=== PATIENT | female | born 1950 | race Caucasian/White ===

== ENCOUNTER 2017-04-20 12:45 | Inpatient (IN) | payer MEDICARE, OTHER ==
[~2017-04-20] VITALS: Ht 165.1 cm; Wt 79.2 kg
--- NOTE | ~2017-04-20 | CON ---
PATIENT'S NAME: SILVIA METZGER [facility] AGE: 67 Y [address] ROOM: [place] [address] LOCATION: [facility] ADMIT DATE: 04/20/2017 Consultation DISCHARGE DATE: FAMILY PHYSICIAN: PHYSICIAN, UNKNOWN ATTENDING PHYSICIAN: Sharan LAYNE DATE OF CONSULTATION: 04/21/2017 TIME: 11:35 p.m. CHIEF COMPLAINT: Stroke. HISTORY OF PRESENT ILLNESS: This is a , 67-year-old female with a past medical history of atrial fibrillation. She is on Coumadin for this. She has also had a history of a prior stroke and some dementia. She was presented to the [place] [facility] and was transferred here. Approximately at 5:30 this morning, she got up to use the bathroom. The patient experienced one episode of nonbloody diarrhea, nausea, and vomiting. Soon afterwards, she was thought to have generalized weakness and dizziness. She went to the emergency room in [place] and had a CAT scan of her head which was interpreted as having an acute extension of the right frontal ischemia in her previous infarct. There was no hemorrhage associated with this read. Therefore, she was transferred to [facility] for advanced care. She states that overnight, she has been feeling kind of feverish. She did not take her temperature with this. She has also complained of generalized body aches and chills. She has not been around anyone sick. She denies any chest pain, shortness of breath, abdominal pain, vertigo, vision change, headache, and loss of consciousness. PAST MEDICAL HISTORY: Includes: 1. Persistent atrial fibrillation. 2. Stroke. 3. Ovarian cancer, status post resection. PAST SURGICAL HISTORY: Ovarian cancer, status post resection. FAMILY HISTORY: Her mother had breast cancer. Her father of old age in his mid 90s. 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 She denies any smoking or drinking. She has PATIENT'S NAME: SILVIA METZGER [facility] AGE: 67 Y [address] ROOM: [address] [address] LOCATION: [facility] ADMIT DATE: 04/20/2017 Consultation DISCHARGE DATE: FAMILY PHYSICIAN: PHYSICIAN, UNKNOWN ATTENDING PHYSICIAN: Sharan LAYNE one child and 2 grand kids. MEDICATIONS: On the JAN and reviewed by me. Of note, she is on warfarin for anticoagulation for her atrial fibrillation. REVIEW OF SYSTEMS: All systems have been reviewed and are negative except for what is mentioned in the HPI. PHYSICAL EXAMINATION: VITAL SIGNS: She is afebrile. Blood pressure is 122/64, heart rate is 68, and she is saturating 97% on room air. Respiratory rate of 16. GENERAL APPEARANCE: The patient is alert and awake. She is sitting in a recliner. HEENT: Head is normocephalic and atraumatic. Eyes: Extraocular muscles are intact with no nystagmus. CHEST: Clear to auscultation bilaterally without rhonchi, wheezing, or rales. HEART: Regular rate and rhythm. She does have a grade 1/6 systolic murmur on the right second intercostal. ABDOMEN: Soft, nontender, and nondistended. NEUROLOGIC: The patient is alert and oriented x2. She is disoriented to time. She has difficulty concentrating. Her pupils are 3 and brisk bilaterally. Her stroke scale is as follows: Level of consciousness 0, month and age 0, closed eyes 0, gaze 0, field testing 0, paresis 1, left arm 1, right arm 0, left leg 1, right leg 0, limb ataxia 0, sensory 0, best language 0, dysarthria 0, extinction and inattention 0, for a total score of 3. Of note, the drift of her left extremities is very, very subtle. DIAGNOSTIC DATA: She did have an MRI at our facility, and we have reviewed the diffusion weighted imaging. She does have some cortical encephalomalacia and subcortical gliosis in the right lateral frontal lobe consistent with chronic infarct. She also has some white matter changes consistent with chronic small- vessel ischemia. There is no acute infarct or any other acute findings on the MRI. There is an old right MCA territory infarct. ASSESSMENT AND PLAN: Recrudescence of stroke-like symptoms due to viral illness. We believe that the stroke has been ruled out by the MRI, but certainly recrudescence of the stroke symptoms can be elicited by a viral illness. When she presented to the hospital, her blood pressure was in the 80s systolic and responded well to fluid challenges. The hospitalist team is looking at blood cultures to rule out anything bacterial. Because she has not had an acute event, she does not necessarily need an echocardiogram. Even if we did find something on the PATIENT'S NAME: SILVIA METZGER [facility] AGE: 67 Y [address] ROOM: [id number] [place], [place] [address] LOCATION: [facility] ADMIT DATE: 04/20/2017 Consultation DISCHARGE DATE: FAMILY PHYSICIAN: PHYSICIAN, UNKNOWN ATTENDING PHYSICIAN: Sharan LAYNE echo, the treatment would be anticoagulation, which she is already on. The patient had carotid ultrasounds done about a year and a half ago and has an appointment next week with her enterprise engineer. She would like to follow up with him as far as the carotid ultrasound imaging. It is okay to start the patient on Coumadin today. We would like to thank you for the opportunity to participate in this patient's care. Her was at the bedside, and the plan of care was discussed. Dr. Vieyra and I developed the plan of care, and both examined the patient. Physician Attestatin: The patient was seen and evaluated via telemedicine with the assistance of NATHANIEL Brandt and outlined above. I am in agreement with the documented assessment and plan as we discussed it in detail together andwith the patient and their family. ALEXEI GREEN APRN FOR MEHDI VIEYRA MD PP/teri /[id number] d: 04/21/17 1346 t: 06/04/17 1322, CONSULTATION REPORT
--- NOTE | ~2017-04-20 | HP ---
PATIENT'S NAME: SILVIA METZGER [facility] AGE: 67 Y [address] ROOM: [place] [address] LOCATION: [facility] ADMIT DATE: 04/20/2017 History & Physical DISCHARGE DATE: FAMILY PHYSICIAN: PHYSICIAN, UNKNOWN ATTENDING PHYSICIAN: Sharan LAYNE DATE OF SERVICE: CHIEF COMPLAINT: Stroke. HISTORY OF PRESENT ILLNESS: The patient is a 67-year-old female with past medical history of persistent atrial fibrillation and a history of prior stroke with residual dementia, who presented here with stroke. The patient was transferred from [place] with stroke. Most information was gathered per . According to the , the patient got up around 05:30 a.m. to use bathroom. The patient experienced one episode of diarrhea non-bloody, nausea, and vomiting. Soon afterwards, the patient was found to have generalized weakness and dizziness. The patient was transferred to [place] [facility]. Chest x-ray done shows acute extension of right frontal ischemic and area of previous infarct with no hemorrhage. The patient was transferred here for further care. The patient reports that overnight, she had been feeling feverish, subjective fevers without recorded high temperature. She also reports that she has generalized body aches. This morning, she woke up, and had one episode of nausea and vomiting and diarrhea. The patient denies sick contacts. The patient also reports of a dry cough without sputum production. The patient denies chest pain, shortness of breath, abdominal pain, vertigo, vision change, headache, and loss of consciousness. MEDICAL HISTORY: 1. Persistent atrial fibrillation. 2. Multiple strokes. 3. Ovarian cancer, status post resection. SURGICAL HISTORY: Ovarian cancer, status post resection. FAMILY HISTORY: Mom had breast cancer. Father of old age in his mid 90s. 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 She denies smoking and drinking. She has one kid and two grandkids. PATIENT'S NAME: SILVIA METZGER [facility] AGE: 67 Y [address] ROOM: [place] [address] LOCATION: [facility] ADMIT DATE: 04/20/2017 History & Physical DISCHARGE DATE: FAMILY PHYSICIAN: PHYSICIAN, UNKNOWN ATTENDING PHYSICIAN: Sharan LAYNE MEDICATIONS: Currently being reconciled. REVIEW OF SYSTEMS: All systems have been reviewed and are negative except for what I mentioned in HPI. PHYSICAL EXAMINATION: VITAL SIGNS: Afebrile, blood pressure was 136/62, heart rate was 69, and saturating 97% on room air with respiratory rate of 16. GENERAL APPEARANCE: The patient is alert and awake, lying on bed. HEAD: Normocephalic and atraumatic. EYES: Extraocular muscles were intact. No nystagmus. NOSE: No nasal discharge. EARS: No ear discharge. MOUTH: Oral cavity with dry mucosa. CHEST: Clear to auscultation bilaterally. No rhonchi, wheezing, or rales. HEART: Regular rate and rhythm. Grade 1 systolic murmur heard on right second intercostal. ABDOMEN: Soft, nontender, and nondistended. Bowel sounds were present. EXTREMITIES: No edema. SKIN: Warm to touch. MUSCULOSKELETAL: Range of motion was intact. No joint effusion was appreciated. PRINCIPAL JAVA SOFTWARE ENGINEER: The patient was alert and oriented x2, not oriented to time. Poor concentration. Motor and sensory were grossly intact. Visual ugalde were intact. Cerebral function was intact. LABORATORY DATA: Labs done at [facility] showed potassium of 4.2, creatinine of 1.2, BUN of 27, and CO2 of 23. White blood cell count of 14, hemoglobin of 11.4, and platelets of 152. DIAGNOSTIC STUDIES: EKG shows atrial fibrillation with rates in the 70s. ASSESSMENT AND PLAN: 1. CVA. The patient is a 67-year-old lady with multiple histories of CVA and history of persistent atrial fibrillation on Coumadin with INR of 2.1, who presented here with right frontal stroke. The patient, according to family, is back to baseline. She has residual dementia. We will hold Coumadin for now as patient had recent stroke. We will acquire MRI to further investigate further stroke. We will start the patient on Lipitor 80 mg and swallow evaluation. We will acquire echocardiogram with bubble study. Since the patient's symptoms started subsequently PATIENT'S NAME: SILVIA METZGER [facility] AGE: 67 Y [address] ROOM: [id number] [place], [place] [address] LOCATION: [facility] ADMIT DATE: 04/20/2017 History & Physical DISCHARGE DATE: FAMILY PHYSICIAN: PHYSICIAN, UNKNOWN ATTENDING PHYSICIAN: Sharan LAYNE after nausea and vomiting, I suspect the patient might have underlying P- waves. Consult Neuro Tele. We will also get carotid Doppler. We will acquire a lipid profile in the morning. For now, we will hold Coumadin, and for how long we are going to hold Coumadin will be dictated by the MRI finding and Neurology recommendation. We will acquire daily INR. The patient is to be seen by PT, OT, and Swallow eval. Serial neuro examination will keep the patient on telemonitor. Also, we will allow permissive hypertension. However, the patient has history of low blood pressure according to , and patient is on blood pressure medication. We will hold blood pressure medication. The patient actually got fluid bolus en route because of low blood pressure with a systolic blood pressure in the 80s. We will start patient on normal saline at 125 mL an hour to keep the blood pressure in normal range to avoid hypotension as that can cause worsening of sequelae. 2. Diarrhea. The patient had one episode of nausea and vomiting and diarrhea. The patient seems like she has a viral illness. However, we will want to rule out bacterial etiology. We will acquire two sets of blood cultures. We will acquire UA workup. Also, the patient reports of dry cough. We will acquire a chest x-ray. To follow the patient clinically. 3. Persistent atrial fibrillation. To hold Coumadin for now. The patient is rate controlled. 4. Nausea and vomiting. The patient appears dry. We will continue IV fluid hydration. 5. Dementia, ongoing. Greater than 60 minutes was spent on patient care. Discussed assessment and plan with Nursing Staff and patient. Discussed about discontinuation of Coumadin for now, and explained the risks and benefits. Family understands. All questions were answered satisfactory to family member. MD CHRISTO FLORES/teri /[id number] D: [id number] T: [id number] HISTORY & PHYSICAL
--- NOTE | ~2017-04-20 | DS ---
PATIENT'S NAME: SILVIA METZGER [facility] AGE: 67 Y [address] ROOM: [address] [address] LOCATION: [facility] ADMIT DATE: 04/20/2017 Discharge Summary DISCHARGE DATE: FAMILY PHYSICIAN: Physician, Unknown ATTENDING PHYSICIAN: Wilfrid Tsang PRINCIPAL DIAGNOSES: 1. Syncope. 2. Paroxysmal atrial fibrillation. 3. Hypertension. 4. History of cerebrovascular accident. HOSPITAL COURSE: A 67-year-old lady with a past medical history of CVA in the past as well as atrial fibrillation, on long-term anticoagulation with Coumadin. She presented to the local emergency department after she experienced some dizziness and weakness after one bout of nonbloody diarrhea. A CAT scan over there was done, which did show some extension of her previous ischemic stroke. She was transferred here for further medical care. NIH stroke scale was zero on arrival here. An MRI was done which did not show any acute new infarct, but the previous infarct in the MCA territory. No diagnosis of acute stroke was made. It is suspicious that probably she got hypotensive after the diarrhea and she is on losartan 50 mg every day. I would recommend holding the losartan dose for now. Given that she has a stroke in the past as well as chronic small vessel ischemia, I am going to start new medication, Lipitor 80 mg p.o. every day. She will follow up with the primary care physician as well as Card[place]. SUBJECTIVE: On day of discharge, feeling fine. No chest pain. No shortness of breath. No abdominal pain. No weakness. Feeling little tired. OBJECTIVE: VITAL SIGNS: Blood pressure 116/71, respiratory rate of 16, pulse 71, temperature 98.9. GENERAL: No acute distress. Alert and oriented x3. HEENT: Head atraumatic, normocephalic. Eyes nonicteric. No pallor. Oropharynx moist mucous membranes. CARDIOVASCULAR: S1, S2. No murmurs, gallops, or rubs. LUNGS: Clear to auscultation bilaterally. ABDOMEN: Soft, nontender, nondistended. Bowel sounds present. EXTREMITIES: No clubbing, cyanosis, or edema. NEUROLOGIC: Cranial nerves 2 through 12 intact. Power in upper and lower both extremities 5/5. No sensory deficit noted. LAB WORK: Impressive for sodium of 148 on 04/21. Creatinine was 0.9. Potassium was 3.6, chloride 117. INR was 1.9 on 04/21. UA was negative for any acute cystitis. She did not have any further episodes of any diarrhea. PATIENT'S NAME: SILVIA METZGER [facility] AGE: 67 Y [address] ROOM: [place] [address] LOCATION: [facility] ADMIT DATE: 04/20/2017 Discharge Summary DISCHARGE DATE: FAMILY PHYSICIAN: Physician, Unknown ATTENDING PHYSICIAN: Wilfrid Tsang Before discharge, we will obtain orthostatic vitals and replace potassium. HEMODYNAMICS ON DISCHARGE: Stable. DISCHARGE MEDICATIONS: Include, 1. Coumadin 5 mg p.o. 6 days a week. 2. Coumadin 7.5 mg p.o. one day a week on Friday. 3. Coreg 6.25 mg p.o. twice daily. 4. Calcium carbonate 200 mg p.o. every evening. 5. Vitamin B12 1000 mcg p.o. q.a.m. DIET: Low-sodium diet. ACTIVITY: As tolerated. MD NORBERTO ROE/teri /[id number] d: 04/21/17 1602 t: 04/28/17 1521, DISCHARGE SUMMARY
[2017-04-20] MEDS ORDERED: COUMADIN ** IA5 MG PO ×2 (15:17→15:18)
[2017-04-20] MEDS ORDERED: TRUSOPT 2% OPTH10 ML OPHTH (15:19)
[2017-04-20] MEDS ORDERED: BETOPTIC-S 0.20.25 % OPHTH (15:20)
[2017-04-20] MEDS ORDERED: COREG6.25 MG PO (15:20)
[2017-04-20] MEDS ORDERED: COZAAR25 MG PO (15:21)
[2017-04-20] MEDS ORDERED: CALCIUM ANTACI200 MG PO (15:23)
[2017-04-20] MEDS ORDERED: VITAMIN B-121000 MCG PO (15:23)
--- NOTE | 2017-04-20 17:00 | NUR ---
ARRIVED PER AMBULANCE FROM [facility] FOR A POSSIBLE STROKE. SLIGHT FACIAL DROOP NOTED. SPEECH CLEAR EXCEPT APHASIC AT TIMES. RIGHT SIDE ONLY SLIGHTLY WEAKER. UP TO THE BATHROOM WITH SBA VOIDING [id number] DIFFICULTY, FOUL SMELLING URINE UA SENT. NEED A STOOL SAMPLE SENT YET. WEARS O2 AT 2L PER NC AT NIGHT AT HOME. FAMILY AT BEDSIDE.
--- NOTE | 2017-04-20 18:31 | NUR ---
PT ADMITTED TO ROOM 6228 PER AMBULANCE CART FOR POSSIBLE STROKE, ACCOMPANIED BY FAMILY. PT STOOD AND TRANSFERED FRO CART TO BED WITH MINIMAL SBA. SLIGHT RIGHT SIDED WEAKNESS AND FACIAL DROOP NOTED. ALERT AND OREIENTED BUT FORGETFUL AT TIMES. MUMBLES SOME WORDS AT TIMES. SPEECH HERE TO DO AN EVALUATION.
[2017-04-20 18:55] LABS: BILIRUBIN URINE NEGATIVE (NEGATIVE); BLOOD URINE 150 /UL (NEGATIVE); COLOR URINE YELLOW (YELLOW); GLUCOSE URINE NEGATIVE (NEGATIVE); KETONE URINE NEGATIVE (NEGATIVE); LEUKOCYTES URINE NEGATIVE /UL (NEGATIVE); NITRITE URINE NEGATIVE (NEGATIVE); PROTEIN URINE NEGATIVE (NEGATIVE); TURBIDITY URINE 2+ (CLEAR); UROBILINOGEN URINE NORMAL (NORMAL)
[2017-04-20 19:11] LABS: AMORPHOUS URINE 3+ (NEGATIVE); BACTERIA URINE MANY (NEGATIVE); EPITHELIAL URINE 0-2 #/HPF (NEGATIVE); WBC URINE 0-2 #/HPF (NEGATIVE)
[2017-04-21 06:19] LABS: INR - (THERAPEUTIC) 1.91 (0.92-1.07); PROTIME 20.2 SECONDS (9.8-11.4)
[2017-04-21 06:27] LABS: ALBUMIN 2.9 gm/dL (3.5-5.0); ALK PHOS 57 IU/L (33-138); ALT 37 IU/L (12-78); AST 34 IU/L (10-40); BLOOD UREA NITROGEN 16 mg/dL (6-24); CALCIUM 9.2 mg/dL (8.5-10.5); CO2 24 mMol/L (22-32); CREATININE 0.9 mg/dL (0.5-1.1); ESTIMATED GFR (MDRD EQUATION) > 60; POTASSIUM 3.6 mMol/L (3.7-5.1); TOTAL BILIRUBIN 0.4 mg/dL (0.0-1.5); TOTAL PROTEIN 5.7 g/dL (6.0-8.4)
[2017-04-21 06:29] LABS: ANION GAP 10.6 (10.0-19.0); CHLORIDE 117 mMol/L (96-110); SODIUM 148 mMol/L (135-145)
--- NOTE | 2017-04-21 07:06 | NUR ---
Significant Event: Alert and oriented x3. Forgetful. PERRLA. Moderate strength. NIH-1. SR, Keep SBP less than 220, DBP less than 120. 2+ pulses. 2L of O2 per NC at NOC. Cardiac diet with thin liquids. 04/19-bowels are active x4. 1A with GB. NS at 125 in R) hand PIV. Continent of B/B. Hemorrhoids are bleeding. Follow up: [facility], cartoid doppler, and MRI with no contrast.
[2017-04-21] MEDS ORDERED: LIPITOR40 MG PO (16:14)
--- NOTE | 2017-04-21 16:40 | NUR ---
written and verbal dismissal instructions given to pt. and including diet, activity, prescriptions, blood clot prevention, and follow up care. verbalized understanding, escorted per w/c to ride home in stable condition.
== END 2017-04-21 16:38 | disposition disaster alternative care site (69) | DRG 312 ==
LOC: GNTU 13:19
PROVIDERS: ADMIT Internal Medicine
DX: R55 Syncope and collapse (principal); I95.9 Hypotension, unspecified; I48.0 Paroxysmal atrial fibrillation; I48.2 Chronic atrial fibrillation; F03.90 Unspecified dementia, unspecified severity, without behavioral disturbance, psychotic disturbance, mood disturbance, and anxiety; B34.9 Viral infection, unspecified; I10 Essential (primary) hypertension; R19.7 Diarrhea, unspecified; Z79.01 Long term (current) use of anticoagulants; Z86.73 Personal history of transient ischemic attack (TIA), and cerebral infarction without residual deficits
CPT/HCPCS: G8978; G8979; G8980; G8987; G8988; G8989; G9168; G9169; G9170; J7030